=== PATIENT | female | born 1935 | race African-American/Black ===

== ENCOUNTER 2020-01-03 08:14 | Emergency (ER) | payer OTHER ==
[~2020-01-03] VITALS: Ht 160 cm; Wt 52.0 kg
[2020-01-03 10:42] LABS: HEMOGLOBIN. 11.4 g/dL (12.0-16.0); MEAN CORPUSCULAR HEMOGLOBIN 29.2 pg (28.0-32.0); MEAN CORPUSCULAR VOLUME 89.6 fL (81.0-99.0); PLATELET 130 x1000/uL (130-400); RED BLOOD CELL COUNT 3.91 mill/uL (4.2-5.4); RED CELL DISTRIBUTION WIDTH 15.9 % (11.6-14.6)
[2020-01-03 10:52] LABS: CHLORIDE 100 mEq/L (98-107)
[2020-01-03 10:54] LABS: INR 1.1; PROTHROMBIN TIME 11.9 sec (9.6-11.0)
[2020-01-03 11:03] LABS: CLARITY URINE CLEAR (CLEAR); COLOR URINE DARK YELLOW (YELLOW); KETONES URINE TRACE (NEGATIVE); LEUKOCYTE ESTERASE URINE 2+ (NEGATIVE); NITRITE URINE NEGATIVE (NEGATIVE); OCCULT BLOOD URINE 3+ (NEGATIVE); PH URINE >=9.0 (4.5-8.0); PROTEIN URINE 3+ (NEGATIVE); SPECIFIC GRAVITY URINE 1.017 (1.005-1.030)
[2020-01-03 11:34] LABS: PLATELET ESTIMATE NORMAL
[2020-01-03] MEDS ORDERED: VANCOMYCIN 1 G PREMIX 200 ML IV ONE (12:45)
[2020-01-03] MEDS ORDERED: PIPERACILLIN/TAZ 3.375G PREMIX 50 ML IV ONE (12:45)
[2020-01-03] MEDS ORDERED: SODIUM CHLORIDE 0.9% 1000ML BAG (SEPSIS BOLUS) IV ONE (12:45)
[2020-01-03 17:05] VITALS: BP 138/100
== END 2020-01-03 18:20 | disposition short-term general hospital (02) ==
LOC: ER 08:14
DX: E87.2 Acidosis (principal); R53.1 Weakness
CPT/HCPCS: 36415; 70450; 71045; 80053; 81003; 82962; 83605; 83690; 83880; 84484; 85025; 85610; 86850; 86900; 86901; 87040; 87077; 87086; 87186; 93005; 96365; 96367; 99285; J2543; J3370; J7030